=== PATIENT | male | born 1960 ===

== ENCOUNTER 2017-04-05 13:15 | Emergency (ER) | payer MEDICAID ==
[2017-04-05 13:16] VITALS: BMI 30.7
[2017-04-05 13:37] VITALS: BP 125/73; PULSE 63; RESP 16; TEMP 98.3; O2SAT 100
[2017-04-05] MEDS ORDERED: Oxycodone/Acetaminophen 5/325 mg Tab PO STA (14:13)
--- NOTE | 2017-04-05 14:24 | ED PDOC ---
HPI: Headache Time Seen by Provider: 04/05/17 14:02 Chief Complaint (Nursing): Headache Chief Complaint (Provider): Headache History Per: Patient History/Exam Limitations: no limitations Onset/Duration Of Symptoms: Days (x5) Current Symptoms Are (Timing): Still Present Additional Complaint(s): Darien Cabrera is a 56 year old male with previous medical history of asthma, who presents to the emergency department with a complaint of gradually worsening posterior headache bilaterally ongoing for 5 days. Denied any fever, chills, visual changes, photophobia, nausea, vomiting, paraesthesia, numbness or weakness. Patient stated he was hospitalized years ago for traumatic brain hemorrhage and reported taking Advil 600mg currently with no improvement in symptoms. PMD: none provided Past Medical History Reviewed: Historical Data, Nursing Documentation, Vital Signs Vital Signs: Last Vital Signs Temp 98.3 F 04/05/17 13:33 Pulse 63 04/05/17 13:33 Resp 16 04/05/17 13:33 BP 125/73 04/05/17 13:33 Pulse Ox 100 04/05/17 13:33 - Medical History PMH: Asthma Denies: Colonic Polyps, Chronic Kidney Disease - Family History Family History: States: Unknown Family Hx - Social History Current smoker - smoking cessation education provided: Yes Alcohol: Social Drugs: Denies - Home Medications Home Medications: Ambulatory Orders Medication Instructions Recorded Albuterol Sulfate [Ventolin Hfa] 0.09 mg IH PRN PRN 12/08/14 Cholecalciferol (Vitamin D3) 50,000 unit PO ONCE 04/06/16 [Vitamin D3] oxyCODONE/Acetaminophen [Percocet 1 tab PO Q6H PRN #15 tab 04/05/17 5/325 mg Tab] - Allergies Allergies/Adverse Reactions: Allergies Allergy/AdvReac Type Severity Reaction Status Date / Time grass pollen Allergy Intermediate RASH Verified 04/05/17 13:33 PORK Allergy Intermediate RASH Verified 04/05/17 13:33 SEAFOOD Allergy Intermediate RASH Uncoded 04/05/17 13:33 Review of Systems ROS Statement: Except As Marked, All Systems Reviewed And Found Negative Constitutional: Negative for: Fever, Chills Eyes: Negative for: Vision Change, Other (photophobia) Gastrointestinal: Negative for: Nausea, Vomiting Neurological: Positive for: Headache (bilateral posterior region). Negative for : Weakness, Numbness (or paraesthesias) Physical Exam - Reviewed Nursing Documentation Reviewed: Yes Vital Signs Reviewed: Yes - Physical Exam Appears: Positive for: Well, Non-toxic, No Acute Distress Head Exam: Positive for: ATRAUMATIC, NORMAL INSPECTION, NORMOCEPHALIC Skin: Positive for: Normal Color Eye Exam: Positive for: Normal appearance, EOMI, PERRL. Negative for: Nystagmus ENT: Positive for: Normal ENT Inspection Neck: Positive for: Normal, Painless ROM, Supple. Negative for: Decreased ROM ( or neck stiffness) Cardiovascular/Chest: Positive for: Regular Rate, Rhythm. Negative for: Chest Non Tender Respiratory: Positive for: Normal Breath Sounds, Accessory Muscle Use. Negative for: Decreased Breath Sounds, Respiratory Distress Neurologic/Psych: Positive for: Alert (x3), Oriented - ECG O2 Sat by Pulse Oximetry: 100 (RA) Pulse Ox Interpretation: Normal Medical Decision Making Medical Decision Making: Initial Impression: Headache Initial Plan: * CT head without contrast * Percocet 5/325mg PO Time: 1538 --CT head FINDINGS: HEMORRHAGE: No intracranial hemorrhage. BRAIN: Palencia-white matter differentiation is preserved. There is no mass, mass effect or abnormal extra-axial fluid collection. VENTRICLES: The ventricles are normal in size, shape and configuration. . There is a 5 mm ( width) left convexity low-attenuation extra-axial fluid collection without mass effect or midline shift. CALVARIUM: The skull base and calvarium are normal. PARANASAL SINUSES: There is moderate mucosal thickening in the paranasal sinuses, worse in the right frontal sinus and ethmoid air cells. MASTOID AIR CELLS: Predominantly clear. OTHER FINDINGS: None. IMPRESSION: --No acute intracranial abnormality. Specifically, no evidence of acute intracranial hemorrhage. --Small left cerebral convexity subdural hygroma versus chronic subdural hematoma. Time: 1540 --Upon provider re-evaluation, patient is medically stable and requires no further treatment in the ED at this time. Patient will be discharged home with Rx for Percocet 5/325mg. Counseling was provided and all questions were answered regarding diagnosis and need for follow up with PCP. There is agreement to discharge plan. Return if symptoms persist or worsen. Clinical Impression: Headache Scribe Attestation: Documented by Magda Palacios, acting as a scribe for Sheree Bertrand MD. Provider Scribe Attestation: All medical record entries made by the Scribe were at my direction and personally dictated by me. I have reviewed the chart and agree that the record accurately reflects my personal performance of the history, physical exam, medical decision making, and the department course for this patient. I have also personally directed, reviewed, and agree with the discharge instructions and disposition. Disposition - Clinical Impression Clinical Impression: Headache - Patient ED Disposition Is Patient to be Admitted: No Counseled Patient/Family Regarding: Studies Performed, Diagnosis, Rx Given - Disposition Referrals: [facility] [Outside] [facility] [Outside] Disposition: Routine/Home Disposition Time: 15:40 Condition: STABLE Prescriptions: oxyCODONE/Acetaminophen [Percocet 5/325 mg Tab] 1 tab PO Q6H PRN #15 tab PRN Reason: Pain, Severe (8-10) Instructions: General Headache (ED) Forms: [employer] (Swiss), [facility] ED School/Work Excuse Print Language: YI
[2017-04-05] MEDS ORDERED: Oxycodone/Acetaminophen 5/325 mg Tab ONE (15:08)
--- NOTE | 2017-04-05 15:40 | CT ---
PROCEDURE: CT HEAD WITHOUT CONTRAST. HISTORY: Posterior DUVALL, h/o cerebral hemorrhage COMPARISON: None available. TECHNIQUE: Axial computed tomography images were obtained through the head/brain without intravenous contrast. Radiation dose: Total exam DLP = 878.63 mGy-cm. This CT exam was performed using one or more of the following dose reduction techniques: Automated exposure control, adjustment of the mA and/or kV according to patient size, and/or use of iterative reconstruction technique. FINDINGS: HEMORRHAGE: No intracranial hemorrhage. BRAIN: Palencia-white matter differentiation is preserved. There is no mass, mass effect or abnormal extra-axial fluid collection. VENTRICLES: The ventricles are normal in size, shape and configuration. . There is a 5 mm (width) left convexity low-attenuation extra-axial fluid collection without mass effect or midline shift. CALVARIUM: The skull base and calvarium are normal. PARANASAL SINUSES: There is moderate mucosal thickening in the paranasal sinuses, worse in the right frontal sinus and ethmoid air cells. MASTOID AIR CELLS: Predominantly clear. OTHER FINDINGS: None. IMPRESSION: No acute intracranial abnormality. Specifically, no evidence of acute intracranial hemorrhage. Small left cerebral convexity subdural hygroma versus chronic subdural hematoma.
== END 2017-04-05 16:20 | disposition home or self-care (01) ==
LOC: H.ER 13:15
DX: R51 Headache (principal)